=== PATIENT | female | born 1980 | race Asian ===

== ENCOUNTER 2016-08-10 10:29 | Emergency (ER) | payer MEDICAID ==
[~2016-08-10] VITALS: Ht 149.9 cm; Wt 62.5 kg
[2016-08-10 10:41] VITALS: Ht 149.9 cm; Wt 62.5 kg
[2016-08-10 11:25] LABS: ADD UMIC YES; URINE BILIRUBIN (Dip) NEGATIVE (NEGATIVE); URINE BLOOD (Dip) TRACE (NEGATIVE); URINE COLOR LT. YELLOW (YELLOW); URINE GLUCOSE (Dip) NEGATIVE (NEGATIVE); URINE KETONES (Dip) NEGATIVE (NEGATIVE); URINE LEUKOCYTE ESTERASE (Dip) 1+ (NEGATIVE); URINE NITRITE (Dip) NEGATIVE (NEGATIVE); URINE TOTAL PROTEIN (Dip) NEGATIVE (NEGATIVE); URINE UROBILINOGEN (Dip) 0.2 E.U./dL (0.1-1.0)
[2016-08-10 11:40] LABS: ADD SCAN DIFF NO
[2016-08-10 11:42] LABS: BASOPHILS % 0.3 % (0.0-2.0); EOSINOPHILS # 0.2 10^3/ul (0.0-0.5); EOSINOPHILS % 1.5 % (0.0-7.0); HEMATOCRIT 44.3 % (37.0-47.0); HEMOGLOBIN 14.9 g/dl (12.0-16.0); LYMPHOCYTES # 3.1 10^3/ul (0.8-2.9); LYMPHOCYTES % 22.3 % (15.0-51.0); MEAN CORPUSCULAR HEMOGLOBIN 28.8 pg (29.0-33.0); MEAN CORPUSCULAR HGB CONC 33.6 g/dl (32.0-37.0); MEAN CORPUSCULAR VOLUME 85.5 fl (82.0-101.0); MEAN PLATELET VOLUME 9.2 fl (7.4-10.4); MONOCYTE # 0.7 10^3/ul (0.3-0.9); MONOCYTES % 5.3 % (0.0-11.0); NEUTROPHIL # 9.6 10^3/ul (1.6-7.5); NEUTROPHILS % 70.2 % (39.0-77.0); PLATELET COUNT 282 10^3/UL (140-415); RED BLOOD COUNT 5.18 10^6/ul (4.20-5.40); RED CELL DISTRIBUTION WIDTH 12.9 % (11.5-14.5); WHITE BLOOD COUNT 13.7 10^3/ul (4.8-10.8)
[2016-08-10 11:46] LABS: BACTERIA,URINE FEW; SQUAMOUS EPITHELIAL CELL,UR MODERATE; URINE RBCS 0-2 /HPF (0)
[2016-08-10 11:53] LABS: POTASSIUM 3.6 mmol/L (3.5-5.1)
[2016-08-10 11:55] LABS: CREATININE 0.51 mg/dl (0.44-1.00)
[2016-08-10 11:56] LABS: ALBUMIN/GLOBULIN RATIO 1.35; BILIRUBIN,INDIRECT 0.7 mg/dl (0-1.1); BILIRUBIN,TOTAL 0.7 mg/dl (0.2-1.3); CALCIUM 9.3 mg/dl (8.4-10.2); TOTAL PROTEIN 8.7 g/dl (6.1-8.1)
--- NOTE | 2016-08-10 12:09 | RADRPT ---
PROCEDURE: First trimester obstetrical ultrasound. CLINICAL INDICATION: , pelvic pain TECHNIQUE: Transabdominal and transvaginal mancilla scale and color Doppler ultrasound of the uterus . COMPARISON: None available FINDINGS: A single intrauterine gestation is present within the uterine fundus. No evidence of extrauterine gestation. Mean sac diameter: 2.44 cm [place]-rump length: 0.69 cm heart rate: 140 Beats per minute No evidence of subchorionic hemorrhage. Trace amount of endocervical fluid is present. Normal appearance of the right ovary. Left ovary not identified by the tree surgeon. Free fluid: None. IMPRESSION: Single intrauterine gestation with an estimated gestational age of 7 weeks 0 days by ultrasound [place]. No evidence of subchorionic hemorrhage. Trace amount of endocervical fluid is present. RPTAT: AADD .John Kyle MD, MD Date Time Electronically viewed and signed by .John Kyle MD, on 08/10/2016 12:09 .B/
[2016-08-10] MEDS ORDERED: NITROFURANTOIN (SR) 100 MG CAP PO ONE (12:30)
--- NOTE | 2016-08-10 12:36 | ERD ---
ER Documentation Chief Complaint Date/Time DATE: 08/10/16 TIME: 12:32 Chief Complaint RLQ ABD PAIN/PRESSURE, MENSURATION DELAYED; LAST MENSTURAL PERIOD 06/26 HPI This 36-year-old female presents to the emergency room for evaluation of abdominal cramping and pressure. The patient does state that her menstrual cycles been delayed in his last mitral cycle was on June 26. She states she took a test at home but did not understand what the results were. Patient came to the ER for evaluation. She denies any fevers, or diarrhea associated with any abdominal discomfort. She denies any vaginal bleeding or vaginal discharge. ROS All systems reviewed and are negative except as per history of present illness. Medications Home Meds No Active Prescriptions or Reported Meds Allergies Allergies: Coded Allergies: No Known Allergy (Unverified , 08/10/16) PMhx/Soc Medical and Surgical Hx: pt denies Medical Hx, pt denies Surgical Hx Hx Alcohol Use: No Hx Substance Use: No Hx Tobacco Use: No Smoking Status: Never smoker Physical Exam Vitals Vital Signs Date Time Temp Pulse Resp B/P Pulse Ox O2 Delivery O2 Flow Rate FiO2 08/10/16 10:41 98.2 72 16 134/63 74 Physical Exam INITIAL VITAL SIGNS: Reviewed by me GENERAL: The patient is well developed and appropriate for usual state of health in no apparent distress HEENT: Pupils equal, round, and reactive to light. EOMI. There is no scleral icterus. NECK: C-spine is soft and supple, there is no meningismus. There is no cervical lymphadenopathy. LUNGS: Clear to auscultation bilaterally. There are no rales, wheezes or rhonchi. HEART: Regular rate and rhythm, no murmurs, clicks, rubs or gallops. ABDOMEN: Negative McBurney point tenderness, no obturator sign, abdomen is soft , non-tender, non-distended. There are bowel sounds in all four quadrants. No rebound or guarding. EXTREMITIES: There is no peripheral cyanosis or edema. No focal swelling or erythema. NEUROLOGICAL: The patient moves all four extremities with 5/5 strength. Cranial nerves II - XII are intact. Normal gait. Alert and oriented SKIN: There is no apparent rash or petechiae. HEME/LYMPHATIC: There is no evidence of excessive bruising or lymphedema. PSYCHIATRIC: The patient does not appear anxious or depressed. Result Diagram: 08/10/16 1130 08/10/16 1130 Results 24 hrs Laboratory Tests Test 08/10/16 10:45 08/10/16 11:30 Urine Color LT. YELLOW Urine Clarity CLEAR Urine pH 5.5 Urine Specific [place] <=1.005 Urine Ketones NEGATIVE Urine Nitrite NEGATIVE Urine Bilirubin NEGATIVE Urine Urobilinogen 0.2 E.U./dL Urine Leukocyte Esterase 1+ Urine Microscopic RBC 0-2/HPF Urine Microscopic WBC 2-5/HPF Urine Squamous Epithelial Cells MODERATE Urine Bacteria FEW Urine Hemoglobin TRACE Urine Glucose NEGATIVE% Urine Total Protein NEGATIVE White Blood Count 13.710^3/ul Red Blood Count 5.1810^6/ul Hemoglobin 14.9g/dl Hematocrit 44.3% Mean Corpuscular Volume 85.5fl Mean Corpuscular Hemoglobin 28.8pg Mean Corpuscular Hemoglobin Concent 33.6g/dl Red Cell Distribution Width 12.9% Platelet Count 54632^3/UL Mean Platelet Volume 9.2fl Neutrophils % 70.2% Lymphocytes % 22.3% Monocytes % 5.3% Eosinophils % 1.5% Basophils % 0.3% Nucleated Red Blood Cells % 0.0/100WBC Neutrophils # 9.610^3/ul Lymphocytes # 3.110^3/ul Monocytes # 0.710^3/ul Eosinophils # 0.210^3/ul Basophils # 0.010^3/ul Nucleated Red Blood Cells # 0.010^3/ul Sodium Level 138mmol/L Potassium Level 3.6mmol/L Chloride Level 101mmol/L Carbon Dioxide Level 23mmol/L Anion Gap 18 Blood Urea Nitrogen 6mg/dl Creatinine 0.51mg/dl Glucose Level 93mg/dl Calcium Level 9.3mg/dl Total Bilirubin 0.7mg/dl Direct Bilirubin 0.00mg/dl Indirect Bilirubin 0.7mg/dl Aspartate Amino Transf (AST/SGOT) 26IU/L Alanine Aminotransferase (ALT/SGPT) 37IU/L Alkaline Phosphatase 61IU/L Total Protein 8.7g/dl Albumin 5.0g/dl Globulin 3.70g/dl Albumin/Globulin Ratio 1.35 Current Medications Medications (Trade) Dose Ordered Sig/Miguel Route PRN Reason Start Time Stop Time Status Last Admin Dose Admin Nitrofurantoin Macrocrystals (Macrobid) 100 mg ONCE ONCE PO 08/10/16 12:30 08/10/16 12:31 DC Procedures/MDM Obstetric ultrasound: Single intrauterine gestation with an estimated gestational age of 7 weeks 0 days by ultrasound criteria. No evidence of subchorionic hemorrhage. Trace amount of endocervical fluid is present. This 36-year-old female presents to the ER for evaluation of abdominal discomfort. When I evaluated this patient she did state that she has been laying on her menstrual cycle for 2 months now. The patient had no vaginal bleeding or vaginal discharge. Lab work was obtained including a urinalysis and test which was positive. The transvaginal ultrasound does show a single intrauterine live at 7 weeks gestation. I did inform the patient of her ultrasound findings. The patient has no fever, she did have a slight leukocyte esterase in her urine and was given Macrobid. No signs of appendicitis on my examination, she is afebrile, negative McBurney point tenderness. I did advise her that although she is she is still susceptible to appendicitis and if her abdominal pain moves towards the right lower quadrant or if she were to develop a fever or extreme patient is to return immediately to the emergency room for further evaluation. She verbalized understanding, states that she has no pain at this time. The patient will be discharged home with a prescription for Macrobid, and [employer] referral Departure Diagnosis: Primary Impression: Additional Impressions: Abdominal cramps Acute cystitis Condition: Stable NIA GONZALES DO Aug 10, 2016 12:36
[2016-08-10] MEDS ORDERED: NITR-58 PO (12:37)
[2016-08-10] MEDS ORDERED: PRENAT PO (12:39)
[2016-08-10 12:47] VITALS: BP 119/78; PULSE 80; RESP 20; TEMP 98.6
== END 2016-08-10 12:50 | disposition home or self-care (01) ==
LOC: E/R 10:29
DX: R10.9 Unspecified abdominal pain (principal); N30.00 Acute cystitis without hematuria; Z33.1 Pregnant state, incidental
CPT/HCPCS: 36415; 76801; 76817; 80053; 81001; 81003; 84702; 85025; Z7502; Z7610